=== PATIENT | female | born 1945 | race Caucasian/White ===

== ENCOUNTER 2018-02-01 07:55 | Day surgery (SDC) | payer MEDICARE, OTHER, SELFPAY ==
[2018-02-01] VITALS (7 sets, daily range): BP systolic 109–145; BP diastolic 60–82; PULSE 53–61; RESP 12–17; TEMP 35.7–36.3; O2SAT 94–98; BMI 34.3
--- NOTE | 2018-02-01 | PATH_ITS ---
[facility] Accession Number: [id number] . 01 Material submitted: . RANDOM COLON . 01 Clinical history: . R/O MICROSCOPIC COLITIS . 02 Diagnosis: Random Colon, Biopsies: Colonic mucosa with no diagnostic abnormality. Negative for active of micoscopic colitis. Negative for granulomata, dysplasia or malignancy. [facility] [place] . 02 Electronically signed: . Werner Chaney MD, PhD, Pathologist NPI- [id number] . 01 Gross description: . RANDOM COLON: Received in formalin are multiple fragment(s) of joshi, soft tissue measuring 1.5 x 0.3 x 0.1 cm in aggregate submitted entirely in 1 cassette(s) /TRC /TRC . 02 Pathologist provided ICD-10: R19.7 . 02 CPT . 439264 Performed at: 01 [facility] [address] [id number] MD Michael Pinon MD Phone: [phone] Performed at: 02 [facility] [id number] [place], [place] [id number] MD Armaan Cervantes MD Phone: [phone]
[2018-02-01] MEDS: SODIUM CHLORIDE 0.9% 1,000 ML 70 ML IV (08:35)
--- NOTE | 2018-02-01 08:45 | PM.HP.1 ---
History of Present Illness Chief complaint: [id number] Narrative: The patient is a 73-year-old female who I had seen on August 26, 2017 for changes in bowel habits who has been experiencing recurrent diarrhea intermittently despite use of fiber supplementation. Preliminary workup has been unrevealing. Prior colonoscopy 2015 showed no evidence of colon tumor. Patient is here for colonoscopy with resampling of colon for possible microscopic colitis. See office note for further details Patient History Family & Social History Social History: household members spouse Meds Home Medications Medication Instructions Recorded Confirmed Type furosemide 20 mg PO DAILY 02/01/18 02/01/18 History nebivolol [Bystolic] 20 mg PO DAILY 02/01/18 02/01/18 History omeprazole 20 mg PO DAILY 02/01/18 02/01/18 History potassium chloride 10 meq PO DAILY 02/01/18 02/01/18 History simvastatin 40 mg PO 02/01/18 History telmisartan-hydrochlorothiazid 1 tab PO DAILY 02/01/18 02/01/18 History trospium 60 mg PO QAM 02/01/18 02/01/18 History Allergies Allergy/AdvReac Type Severity Reaction Status Date / Time ampicillin Allergy Rash Verified 02/01/18 08:20 ciprofloxacin [From Cipro] Allergy Rash Verified 02/01/18 08:21 felodipine Allergy Cough Verified 02/01/18 08:20 morphine Allergy Vomiting Verified 02/01/18 08:19 Exam Vital Signs (past 8 hours): Vital Signs - 8 hr 02/01/18 08:22 Temperature 97.4 F L Pulse Rate 60 Respiratory Rate 15 Blood Pressure 145/82 H Pulse Oximetry 95 Pulse Oximetry 95 Oxygen Delivery Method Room Air Narrative Exam Narrative: General: Patient is overweight, not in apparent distress Cardiovascular: Regular rate and rhythm, no murmurs, rubs, or gallops; no evidence of edema; no palpable abdominal aortic aneurysm Gastrointestinal: Normoactive bowel sounds, soft, nontender, nondistended, no rebound tenderness, no hepatosplenomegaly, no evidence of hernia Assessment & Plan Plan: Assessment/Plan Narrative: 73-year-old female with change in bowel habit here for colonoscopy and biopsies to rule out microscopic colitis
--- NOTE | 2018-02-01 08:48 | P.HP_ITS ---
History of Present Illness Chief complaint: [id number] Narrative: The patient is a 73-year-old female who I had seen on August 26, 2017 for changes in bowel habits who has been experiencing recurrent diarrhea intermittently despite use of fiber supplementation. Preliminary workup has been unrevealing. Prior colonoscopy 2015 showed no evidence of colon tumor. Patient is here for colonoscopy with resampling of colon for possible microscopic colitis. See office note for further details Patient History Family & Social History Social History: household members spouse Meds Home Medications Medication Instructions Recorded Confirmed Type furosemide 20 mg PO DAILY 02/01/18 02/01/18 History nebivolol [Bystolic] 20 mg PO DAILY 02/01/18 02/01/18 History omeprazole 20 mg PO DAILY 02/01/18 02/01/18 History potassium chloride 10 meq PO DAILY 02/01/18 02/01/18 History simvastatin 40 mg PO 02/01/18 History telmisartan-hydrochlorothiazid 1 tab PO DAILY 02/01/18 02/01/18 History trospium 60 mg PO QAM 02/01/18 02/01/18 History Allergies Allergy/AdvReac Type Severity Reaction Status Date / Time ampicillin Allergy Rash Verified 02/01/18 08:20 ciprofloxacin [From Cipro] Allergy Rash Verified 02/01/18 08:21 felodipine Allergy Cough Verified 02/01/18 08:20 morphine Allergy Vomiting Verified 02/01/18 08:19 Exam Vital Signs (past 8 hours): Vital Signs - 8 hr 3 02/01/18 08:22 Temperature 97.4 F L Pulse Rate 60 Respiratory Rate 15 Blood Pressure 145/82 H Pulse Oximetry 95 Pulse Oximetry 95 Oxygen Delivery Method Room Air Narrative Exam Narrative: General: Patient is overweight, not in apparent distress Cardiovascular: Regular rate and rhythm, no murmurs, rubs, or gallops; no evidence of edema; no palpable abdominal aortic aneurysm Gastrointestinal: Normoactive bowel sounds, soft, nontender, nondistended, no rebound tenderness, no hepatosplenomegaly, no evidence of hernia Assessment & Plan Plan: Assessment/Plan Narrative: 73-year-old female with change in bowel habit here for colonoscopy and biopsies to rule out microscopic colitis
--- NOTE | 2018-02-01 08:54 | PM.OP.ENDO ---
Operative Date/Time/Diagnoses - Date of procedure: 02/01/18 Time of procedure: 09:06 Procedure Notes Procedure in detail: Surgeon: Anam Fierro MD Procedure: Colonoscopy with biopsy Preoperative diagnosis: Change in bowel habit, diarrhea Postoperative diagnosis: Normal colonic mucosa, grade 1 internal hemorrhoids Medications: Conscious sedation using 4 mg IV of Midazolam and 50 mcg IV of Fentanyl Preanesthesia Assessment An H and P was performed/updated and the Px?s ASA class is 2. The procedure was discussed in detail with the patient. The potential risks and complications including infection, bleeding, missed lesions, perforation, need for surgery in case of perforation, prolonged hospital stay, and were explained. A brief question and answer period was allotted and once all questions were answered, informed consent was obtained. The patient was brought back to the procedure room and placed on standard monitoring. The patient?s vital signs were monitored continuously throughout the entire procedure. Prior to starting, a timeout was performed to confirm the patient?s identity, allergies, medications, and procedure. Procedure in detail The patient was placed in left lateral decubitus position and once adequate sedation was obtained a CARLOS was performed. The digital rectal exam revealed no palpable lesions. The tip of the colonoscope was then placed in the anal canal and advanced without difficulty all the way to the cecum which was identified by the appendiceal orifice and ileocecal valve. Careful examination of all byrne of the colon was performed with washing of any residual stool. Throughout the entire colon the mucosa appeared normal. Random colon biopsies were obtained to rule out microscopic colitis. Retroflexion was performed in the rectum which revealed grade 1 internal hemorrhoids the procedure was then terminated. The patient tolerated the procedure well and will be brought back to the recovery area to be discharged once criteria are met. The prep was judged to be good/excellent and adequate to identify polyps less than 5 mm. The withdrawal time was 9 min. The total procedure time from initial sedation was 20 min. Complications There were no complications and estimated blood loss was minimal. Recommendations: Resume previous diet Use Citrucel 2 tbsp twice daily and follow symptoms Continue outPx medications Follow up pathology results Office follow up in 2 months An emergency contact number was given to the patient for any complications related to the procedure
[2018-02-01] MEDS: fentaNYL 250 MCG/5 ML INJ IV (09:23)
[2018-02-01] MEDS: MIDAZOLAM 5 MG/5 ML VIAL IV (09:24)
--- NOTE | 2018-02-01 09:35 | P.DS_ITS ---
History of Present Illness Chief complaint: [id number] Narrative: The patient is a 73-year-old female who I had seen on August 26, 2017 for changes in bowel habits who has been experiencing recurrent diarrhea intermittently despite use of fiber supplementation. Preliminary workup has been unrevealing. Prior colonoscopy 2015 showed no evidence of colon tumor. Patient is here for colonoscopy with resampling of colon for possible microscopic colitis. See office note for further details Discharge Providers Discharge provider: Anam Fierro MD Exam Vital Signs (past 8 hours): Vital Signs - 8 hr 3 02/01/18 08:22 Temperature 97.4 F L Pulse Rate 60 Respiratory Rate 15 Blood Pressure 145/82 H Pulse Oximetry 95 Pulse Oximetry 95 Oxygen Delivery Method Room Air Narrative Exam Narrative: General: Patient is well developed, not in apparent distress Cardiovascular: Regular rate and rhythm, no murmurs, rubs, or gallops; no evidence of edema; no palpable abdominal aortic aneurysm Gastrointestinal: Normoactive bowel sounds, soft, nontender, nondistended, no rebound tenderness, no hepatosplenomegaly, no evidence of hernia Discharge Plan Discharge Plan Patient Disposition: Home, Self-Care Discharge comment: Use Citrucel 2 tbsp twice daily for the next 2 months Remove IV prior to discharge Discharge to home once criteria are met (positive flatus, stable vital signs, no abdominal pain, tolerating p.o.) Discharge Med Rec/Prescriptions Prescriptions: Continue potassium chloride 10 mEq Capsule, Extended Release 10 meq PO DAILY RF: 0 simvastatin 40 mg Tablet 40 mg PO RF: 0 omeprazole 20 mg Capsule,Delayed Release(Dr/Ec) 20 mg PO DAILY RF: 0 furosemide 20 mg Tablet 20 mg PO DAILY RF: 0 telmisartan-hydrochlorothiazid 80-25 mg Tablet 1 tab PO DAILY RF: 0 trospium 60 mg Capsule,Extended Release 24hr 60 mg PO QAM RF: 0 nebivolol [Bystolic] 20 mg Tablet 20 mg PO DAILY RF: 0 Follow up/Referrals: Anam Fierro MD [Physician] - (Follow-up at our office in 2 months time) Discharge Orders: Discharge (Order); Ordered 02/01/18 Ordered By: Anam Fierro Provider Discharge Instructions Diet: Diet as Tolerated Visit Report/Discharge Packet Stand Alone Forms: Surgery Discharge Discharge Data Attending Provider: Anam Fierro
== END 2018-02-01 10:22 | disposition home or self-care (01) ==
PROVIDERS: Visit Provider Internal Medicine Gastroenterology
PROC: 0DJD8ZZ Inspection of Lower Intestinal Tract, Via Natural or Artificial Opening Endoscopic (ICD-10-PCS; CPT 45378; principal; 2018-02-01 09:00)
DX: R19.4 Change in bowel habit (principal); K64.0 First degree hemorrhoids; R19.7 Diarrhea, unspecified
CPT/HCPCS: 45380; J2250; J3010